=== PATIENT | male | born 1965 | race Caucasian/White ===

== ENCOUNTER 2017-11-14 11:40 | Emergency (ER) | payer OTHER ==
[~2017-11-14] VITALS: Ht 180.3 cm; Wt 113.4 kg
[~2017-11-14 11:40] MED LIST: HIBICLENS118 ML TOP; LEVAQUIN750 MG PO; LOSARTAN-HCTZ1 EAC1; MUPIROCIN22 GM TOP
== END 2017-11-14 16:37 | disposition home or self-care (01) ==
LOC: ER 11:40
DX: K64.4 Residual hemorrhoidal skin tags (principal); K60.2 Anal fissure, unspecified

== ENCOUNTER 2022-06-10 22:43 | Emergency (ER) | payer OTHER ==
[~2022-06-10] VITALS: Ht 180.3 cm; Wt 108.9 kg
== END 2022-06-11 11:10 | disposition home or self-care (01) ==
LOC: ER 22:43
DX: E87.6 Hypokalemia (principal); M54.50 Low back pain, unspecified; R10.9 Unspecified abdominal pain; I10 Essential (primary) hypertension; E27.8 Other specified disorders of adrenal gland

== ENCOUNTER 2025-06-04 07:03 | Emergency (ER) | payer OTHER ==
[~2025-06-04] VITALS: Ht 182.9 cm; Wt 99.8 kg
[2025-06-04 10:06] LABS: BASO % 1.2 % (0.1-1.2); EOS # 0.18 (0.04-0.54); EOS % 1.9 % (0.7-7.0); LYMPH # 0.47 (1.18-3.74); LYMPH % 5.0 % (19.3-53.1); MEAN PLATELET VOLUME 11.50 fl (9.4-12.4); MONO # 0.90 (0.24-0.82); MONO % 9.7 % (4.7-12.5); NEUT # 7.57 (1.56-6.13); NEUT % 81.2 % (34.0-71.1); RED CELL DISTRIBUTION WIDTH 13.1 % (11.6-14.4)
[2025-06-04 10:39] LABS: COVID-19 AG POSITIVE (NEGATIVE)
[2025-06-04 10:57] LABS: ALT/SGPT 70.0 U/L (12-78); AST/SGOT 76.0 U/L (15-37); BILIRUBIN TOTAL 1.07 mg/dL (0.3-1.2); BUN CREA RATIO 18.0 (7.0-25.0); CREATININE SERUM 0.8 mg/dL (0.70-1.30); GFR 98.94; GLOBULINA 3.7 G/DL (2.4-3.5); GLUCOSE FASTING 108.0 mg/dL (65-100); OSMOLALITY SERUM 277.0 MOSM/KG (275-295)
[2025-06-04 11:33] LABS: URINE APPEARANCE Clear; URINE BILIRRUBIN Negative (NEGATIVE); URINE BLOOD Large; URINE COLOR Yellow; URINE GLUCOSE Negative (NEGATIVE); URINE KETONE Negative (NEGATIVE); URINE LEUKOCYTE Negative; URINE NITRATE Negative; URINE PROTEIN Negative (NEGATIVE); URINE UROBILINOGEN 1.0 E.U./dl
[2025-06-04 11:40] LABS: URINE BACTERIA 115.1 uL (0.0-1933); URINE EPITHELIAL CELLS 14.6 uL (0.0-38.8); URINE RBC 52.3 uL (0.0-20.8); URINE WBC 4.4 uL (0.0-23.2)
[2025-06-04 11:44] LABS: URINE CAST 0.00 uL (0.0-1.40)
== END 2025-06-04 19:26 | disposition home or self-care (01) ==
LOC: ER 07:29
PROVIDERS: Preventive Medicine Public Health & General Preventive Medicine
DX: U07.1 COVID-19 (principal); I10 Essential (primary) hypertension; N50.89 Other specified disorders of the male genital organs